=== PATIENT | male | born 1970 | race Caucasian/White ===

== ENCOUNTER 2022-06-07 12:03 | Emergency (ER) | payer OTHER, SELFPAY ==
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
[2022-06-07 12:19] VITALS: BP 137/82; PULSE 70; RESP 16; TEMP 36.6; O2SAT 99
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
== END 2022-06-07 12:59 | disposition home or self-care (01) ==
PROVIDERS: Emergency Provider Nurse Practitioner
DX: M47.812 Spondylosis without myelopathy or radiculopathy, cervical region (principal); M19.012 Primary osteoarthritis, left shoulder; M75.32 Calcific tendinitis of left shoulder; V49.60XA Unspecified car occupant injured in collision with unspecified motor vehicles in traffic accident, initial encounter; I10 Essential (primary) hypertension
CPT/HCPCS: 72050; 73030; 99204; G0463